=== PATIENT | female | born 1995 | race Asian ===

== ENCOUNTER 2016-12-13 21:04 | Emergency (ER) | payer BC ==
[~2016-12-13] VITALS: Ht 172.7 cm; Wt 137.9 kg
[2016-12-13 21:41] LABS: PLATELET COUNT 375 K/uL (152-353)
[2016-12-13 21:52] LABS: POTASSIUM 3.2 mmol/L (3.6-5.2); SODIUM 134 mmol/L (136-145)
[2016-12-13 22:20] VITALS: BP 165/89; TEMP 97.8
== END 2016-12-13 22:26 | disposition home or self-care (01) ==
LOC: ED 21:04
DX: R07.89 Other chest pain (principal)
CPT/HCPCS: 80053; 82550; 84484; 85027; 86318; 93005; 99283

== ENCOUNTER 2019-10-18 02:32 | Emergency (ER) | payer OTHER ==
[~2019-10-18] VITALS: Ht 175.3 cm; Wt 109.3 kg
[2019-10-18 03:55] VITALS: BP 118/76; TEMP 98.1
== END 2019-10-18 03:55 | disposition home or self-care (01) ==
LOC: ED 02:32
DX: N39.0 Urinary tract infection, site not specified (principal)
CPT/HCPCS: 81000; 81025; 87077; 87086; 87088; 87185; 87186; 99283

== ENCOUNTER 2019-11-29 00:09 | Emergency (ER) | payer OTHER ==
[~2019-11-29] VITALS: Ht 175.3 cm; Wt 109.3 kg
[2019-11-29 00:16] VITALS: BP 136/59; TEMP 98.2
== END 2019-11-29 01:27 | disposition home or self-care (01) ==
LOC: ED 00:09
DX: L03.012 Cellulitis of left finger (principal)
CPT/HCPCS: 96372; 99282; 99283; J1885

== ENCOUNTER 2022-06-15 16:29 | Emergency (ER) | payer OTHER ==
[~2022-06-15] VITALS: Ht 175.3 cm; Wt 109.3 kg
[2022-06-15 16:31] VITALS: BP 152/67; TEMP 98.5
== END 2022-06-15 17:47 | disposition home or self-care (01) ==
LOC: ED 16:29
DX: T63.451A Toxic effect of venom of hornets, accidental (unintentional), initial encounter (principal); X58.XXXA Exposure to other specified factors, initial encounter; Y92.098 Other place in other non-institutional residence as the place of occurrence of the external cause
CPT/HCPCS: 94664; 96372; 99283; J1200; J2930

== ENCOUNTER 2022-10-29 08:57 | Outpatient (CLI) | payer OTHER | END 2022-10-29 18:52 | disposition home or self-care (01) | LOC: US 08:57 | PROVIDERS: ATTEND Nurse Practitioner Family | DX: Z13.6 Encounter for screening for cardiovascular disorders (principal) ==

== ENCOUNTER 2023-06-06 10:34 | Outpatient (CLI) | payer OTHER | END 2023-06-06 19:48 | disposition home or self-care (01) | LOC: LABW 10:34 | PROVIDERS: ATTEND Nurse Practitioner Family | DX: R11.0 Nausea (principal); R10.817 Generalized abdominal tenderness | CPT/HCPCS: 36415; 84702; Q9963 ==